=== PATIENT | male | born 1970 | race African-American/Black ===

== ENCOUNTER 2018-01-23 08:36 | Emergency (ER) | payer OTHER ==
[2018-01-23 08:51] VITALS: BP 134/81; PULSE 91; TEMP 98.9; BMI 31.2
--- NOTE | 2018-01-23 09:12 | PDOC ---
History of Present Illness - General Stated Complaint: LEFT SIDE IN PAIN Time Seen by Provider: 01/23/18 08:53 History Source: Patient Exam Limitations: No Limitations - History of Present Illness Initial Comments: CHIEF COMPLAINT: 47 y/o afebrile male with no significant PMH c/o left buttock pain x 1 week. HISTORY OF PRESENT ILLNESS: The patient does not recall any specific injury. However, he does a lot of heavy lifting, moving and twisting at work. He saw his doctor a few days ago who prescribed ibuprofen and a muscle relaxer, which he states isn't helping. Originally the pain was traveling down his left leg but it's now only in his left buttock. Vital signs on arrival are within normal limits. REVIEW OF SYSTEMS: GENERAL/CONSTITUTIONAL: No fever/chills. No weakness. No weight change. GENITOURINARY: No dysuria, frequency, or change in urination. MUSCULOSKELETAL: +left buttock and leg pain. No neck or back pain. SKIN: No rash or easy bruising. NEUROLOGIC: No headache, vertigo, loss of consciousness, or loss of sensation. PHYSICAL EXAM: GENERAL: The patient is awake, alert, and fully oriented, in no acute distress. He is ambulatory but obviously favoring his right side. ABDOMEN: Soft, non-distended, non-tender even to deep palpation, no hepatomegaly or splenomegaly, no masses. BACK: No midline lumbar spine TTP or step offs MUSCULOSKELETAL: Pain reproduced with palpation of left buttock. No TTP of left greater trochanter. Manipulation of left hip reveals very tight piriformis muscle. EXTREMITIES: Normal range of motion, no edema. NEUROLOGICAL: Normal speech, normal gait. CN II-XII grossly intact. No numbness /tingling in extremities. SKIN: Warm, dry, normal turgor, no rashes or lesions noted. Past History - Past Medical History Allergies/Adverse Reactions: Allergies Allergy/AdvReac Type Severity Reaction Status Date / Time No Known Allergies Allergy Verified 01/23/18 08:45 COPD: No - Immunization History Immunization Up to Date: No - Suicide/Smoking/Psychosocial Hx Smoking History: Former smoker Have you smoked in the past 12 months: No If you are a former smoker, when did you quit?: 10 YEARS Information on smoking cessation initiated: No Hx Alcohol Use: No Drug/Substance Use Hx: No *Physical Exam - Vital Signs Last Vital Signs Temp Pulse Resp BP Pulse Ox 98.9 F 91 H 18 134/81 100 01/23/18 08:45 01/23/18 08:45 01/23/18 08:45 01/23/18 08:45 01/23/18 08:45 Medical Decision Making - Medical Decision Making A/P: 47 y/o male with left piriformis syndrome/sciatica. INstructed him to continue taking Ibuprofen and muscle relaxer as prescribed by his doctor. Demonstrated stretching he needs to do hourly to work out the muscle. Suggested alternating between heating pain, ice and massage in between stretching. The patient verbalizes understanding of all instructions, has no further questions and is awaiting discharge. *DC/Admit/Observation/Transfer Diagnosis at time of Disposition: Piriformis syndrome Qualifiers: Laterality: left Qualified Code(s): G57.02 - Lesion of sciatic nerve, left lower limb Sciatic nerve pain Qualifiers: Laterality: left Qualified Code(s): M54.32 - Sciatica, left side - Discharge Dispostion Disposition: HOME Condition at time of disposition: Good - Referrals - Patient Instructions Printed Discharge Instructions: DI for Sciatica Additional Instructions: Discharge Instructions: -Continue taking Ibuprofen and muscle relaxer as prescribed by your doctor -Please stretch your left leg/butt every hour as shown in the ER -Alternate between ice, heat, stretching and massage -Return to the ER with any worsening or concerning symptoms - Post Discharge Activity Forms/Work/School Notes: Back to Work
== END 2018-01-23 09:41 | disposition home or self-care (01) ==
LOC: JERFT 08:36
DX: M54.42 Lumbago with sciatica, left side (principal); G57.32 Lesion of lateral popliteal nerve, left lower limb
CPT/HCPCS: 99281-25